=== PATIENT | male | born 1955 | race Two or more races ===

== ENCOUNTER 2020-02-06 06:43 | Day surgery (SDC) | payer OTHER ==
[~2020-02-06 06:43] MED LIST: MICARDIS40 MG PO; ZOLOFT50 MG
[2020-02-06] MEDS ORDERED: PERCOCET 5-3251 EACH PO (12:45)
[2020-02-06] MEDS ORDERED: NEURONTIN600 M1 PO (12:46)
[2020-02-06] MEDS ORDERED: POLY119PG PO (12:46)
== END 2020-02-06 17:00 | disposition home or self-care (01) ==
LOC: CIR.AMB 06:43
DX: K43.2 Incisional hernia without obstruction or gangrene (principal)